=== PATIENT | male | born 1965 | race Caucasian/White ===

== ENCOUNTER 2020-07-09 11:51 | Emergency (ER) | payer MEDICAID ==
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
[2020-07-09] MEDS ORDERED: Sodium Chloride 0.9% 10 ML Syringe FLUSH PRN (15:01)
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
[2020-07-09] MEDS: Sodium Chloride 0.9% 2.5 ML Syringe FLUSH PRN ×2 (15:17→15:18)
--- NOTE | 2020-07-09 15:17 | PCM.EKG ---
#1 Interpretation EKG Date: 07/09/20 Time: 15:10 Rhythm: NSR Rate (Beats/Min): 51 [place]: Normal P-Wave: Present QRS: Normal ST-T: Normal QT: Normal Comparison: NA - No Prior EKG EKG Interpretation Comments: Sinus Rhythm
[2020-07-09 15:50] LABS: BLOOD UREA NITROGEN,BUN 9 mg/dL (7.0-18.0); CHLORIDE,CL 104 mmol/L (98-107); GLUCOSE RANDOM 93 mg/dL (74-106); POTASSIUM,K 3.9 mmol/L (3.5-5.1); SODIUM,NA 141 mmol/L (136-148)
[2020-07-09] MEDS ORDERED: Iopamidol 755 MG/ML 500 ML Multipack Bottle IVPUSH ONE (16:25)
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
[2020-07-09 17:56] VITALS: PULSE 55
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
[2020-07-09 19:16] VITALS: BP 140/76
[2020-07-09] MEDS ORDERED: Calcium Carbonate 500 MG Tab.Chew PO ONE (19:20)
[2020-07-09] MEDS ORDERED: Meclizine 25 MG Tab PO ONE (19:21)
== END 2020-07-09 19:40 ==
LOC: MW.ED 11:51
DX: S09.90XA Unspecified injury of head, initial encounter (principal); S19.9XXA Unspecified injury of neck, initial encounter; S39.92XA Unspecified injury of lower back, initial encounter; R42 Dizziness and giddiness; E83.51 Hypocalcemia; Z72.0 Tobacco use; V49.10XA Passenger injured in collision with unspecified motor vehicles in nontraffic accident, initial encounter
CPT/HCPCS: 36415; 70450; 70450-26; 70496; 70496-26; 70498; 70498-26; 72125; 72125-26; 72128; 72128-26; 80053; 81003; 84484; 85025; 93005; 99285; 99285-25; A9270-GY; Q9967